=== PATIENT | female | born 1965 | race Caucasian/White ===

== ENCOUNTER 2018-07-23 06:31 | Day surgery (SDC) | payer OTHER ==
[2018-07-23] MEDS ORDERED: MIDAZOLAM 1 MG/ML 2 ML INJ ×3 (08:49→11:18)
[2018-07-23] MEDS ORDERED: FENTAnyl 50 MCG/ML VIAL (08:49)
== END 2018-07-23 10:26 | disposition home or self-care (01) ==
LOC: GIL 06:31
DX: Z12.11 Encounter for screening for malignant neoplasm of colon (principal); K64.8 Other hemorrhoids; K20.8 Other esophagitis; K29.30 Chronic superficial gastritis without bleeding
CPT/HCPCS: 43239; 88305; 88312

== ENCOUNTER 2018-12-28 09:40 | Inpatient (IN) | payer OTHER ==
[2018-12-28] MEDS ORDERED: LACTATED RINGER'S 1,000 ML IV* (10:00)
[2018-12-28] MEDS: CEFAZOLIN 2 GM/50 ML (PMX) 50 ML IVPB (10:00)
[2018-12-28] MEDS ORDERED: FENTAnyl 50 MCG/ML VIAL IV ×2 (14:00)
[2018-12-28] MEDS ORDERED: ALBUTEROL 0.083% (NEB) 2.5 MG/3 ML AMP HHN (14:00)
[2018-12-28] MEDS ORDERED: HYDROmorphONE 1 MG/5 ML IV SYRINGE IV (14:00)
[2018-12-28] MEDS ORDERED: METOCLOPRAMIDE 10 MG INJ IV (14:00)
[2018-12-28] MEDS ORDERED: OXYCODONE/ACETAMINOPHEN (5/325) TAB PO (14:00)
[2018-12-28] MEDS ORDERED: DIPHENHYDRAMINE 50 MG INJ IV (14:00)
[2018-12-28] MEDS: GELATIN SIZE 100 SPONGE (14:04)
[2018-12-28] MEDS: SURGIFOAM POWDER 1 GM KIT (14:04)
[2018-12-28] MEDS: THROMBIN (BOVINE) 5,000 UNIT VIAL TP (14:05)
[2018-12-28] MEDS: BUPIVACAINE 0.5%/EPI (SDV) 30 ML INJ (14:05)
[2018-12-28] MEDS ORDERED: POLYMYXIN/BACITRACIN 1L IRRIG (14:05)
[2018-12-28] MEDS ORDERED: FENTAnyl 50 MCG/ML VIAL (14:22)
[2018-12-28] MEDS ORDERED: HEPARIN 1000 UNITS/ML 10 ML INJ (14:28)
[2018-12-28] MEDS ORDERED: CA CHLORIDE 10% 10 ML SYRINGE (14:28)
[2018-12-28] MEDS ORDERED: PROVENTIL HFA 6.7GM INHALER (14:31)
[2018-12-28] MEDS: CEFAZOLIN 1 GM INJ (14:54)
[2018-12-28] MEDS ORDERED: PROPOFOL 20 ML (17:00)
[2018-12-28] MEDS ORDERED: SUGAMMADEX SODIUM 200 MG/2 ML VIAL IV (17:00)
[2018-12-28] MEDS ORDERED: ROCURONIUM 50 MG INJ (17:00)
[2018-12-28] MEDS ORDERED: LIDOCAINE 100 MG SYRINGE (17:00)
[2018-12-28] MEDS ORDERED: SUCCINYLCHOLINE CHLORIDE 100 MG/5 ML SYG IV (17:00)
[2018-12-28] MEDS ORDERED: CEFAZOLIN 1 GM INJ (17:00)
[2018-12-28] MEDS ORDERED: HYDROmorphONE 0.2 MG/ML PCA (17:23)
[2018-12-28] MEDS: HYDROmorphONE 1 MG/5 ML IV SYRINGE IV ×2 (17:27→17:49)
[2018-12-28] MEDS ORDERED: PROCHLORPERAZINE 10 MG TAB PO (17:30)
[2018-12-28] MEDS ORDERED: NACL 0.9% 3 ML SYG IV (17:30)
[2018-12-28] MEDS ORDERED: AL HYDROX/MG HYDROX/SIMETH 30 ML CUP PO (17:30)
[2018-12-28] MEDS ORDERED: ACETAMINOPHEN 325 MG TAB PO (17:30)
[2018-12-28] MEDS ORDERED: NALOXONE (0.4 MG/ML) INJ IV (17:30)
[2018-12-28] MEDS: ONDANSETRON 4 MG INJ IV (17:32)
[2018-12-28] MEDS: MEPERIDINE 25 MG INJ IV (17:32)
[2018-12-28] MEDS: HYDROmorphONE 0.2 MG/ML PCA IV (17:48)
[2018-12-28] MEDS: CEFAZOLIN 1 GM/50 ML (PMX) 50 ML IVPB (17:54)
[2018-12-28] MEDS: LACTATED RINGER'S 1,000 ML IV (19:05)
[2018-12-28] MEDS: ATORVASTATIN 10 MG TAB PO (21:00)
[2018-12-29] MEDS: ONDANSETRON 4 MG INJ IV (00:32)
[2018-12-29] MEDS: CEFAZOLIN 1 GM/50 ML (PMX) 50 ML IVPB ×3 (00:32→11:52)
[2018-12-29 05:17] LABS: HEMATOCRIT 37.1 % (37.0-47.0); HEMOGLOBIN 12.1 g/dl (12.0-16.0)
[2018-12-29 05:33] LABS: ANION GAP 9 (5-13); BLOOD UREA NITROGEN 9 mg/dl (7-20); CALCIUM 8.9 mg/dl (8.4-10.2); CARBON DIOXIDE 27 mmol/L (21-31); CHLORIDE 104 mmol/L (97-110); CREATININE 0.57 mg/dl (0.44-1.00); Estimated GFR > 60 mL/min (>60); GLUCOSE 130 mg/dl (70-220); POTASSIUM 4.1 mmol/L (3.5-5.1); SODIUM 140 mmol/L (135-144)
[2018-12-29] MEDS: PANTOPRAZOLE (EC) 40 MG TAB PO (05:38)
[2018-12-29] MEDS: DOCUSATE SODIUM 100 MG CAP PO ×2 (08:24→20:59)
[2018-12-29] MEDS: LACTATED RINGER'S 1,000 ML IV (11:30)
[2018-12-29] MEDS: HYDROCODONE/APAP (5/325) TAB PO (14:05)
[2018-12-29] MEDS ORDERED: DEXTROSE 5%-0.45% NACL 1,000 ML IV (19:00)
[2018-12-29] MEDS: DEXTROSE 5%-0.9% NACL 1,000 ML IV (21:01)
[2018-12-29] MEDS: ATORVASTATIN 10 MG TAB PO (21:01)
[2018-12-30] MEDS: HYDROCODONE/APAP (5/325) TAB PO ×3 (00:11→13:59)
[2018-12-30 05:11] LABS: ADD MAN DIFF? NO
[2018-12-30 05:21] LABS: BASOPHILS % 0.4 % (0.0-2.0); HEMATOCRIT 38.5 % (37.0-47.0); HEMOGLOBIN 12.6 g/dl (12.0-16.0); LYMPHOCYTES % 19.5 % (15.0-51.0); MEAN CORPUSCULAR HEMOGLOBIN 32.1 pg (29.0-33.0); MEAN CORPUSCULAR HGB CONC 32.7 g/dl (32.0-37.0); MEAN PLATELET VOLUME 10.4 fl (7.4-10.4); NEUTROPHIL # 7.1 10^3/ul (1.6-7.5); NEUTROPHILS % 69.7 % (39.0-77.0); PLATELET COUNT 266 10^3/UL (140-415); RED BLOOD COUNT 3.93 10^6/ul (4.20-5.40); RED CELL DISTRIBUTION WIDTH 12.7 % (11.5-14.5)
[2018-12-30 05:21] LABS: WHITE BLOOD COUNT 10.2 10^3/ul (4.8-10.8)
[2018-12-30] MEDS: PANTOPRAZOLE (EC) 40 MG TAB PO (05:32)
[2018-12-30 05:44] LABS: ANION GAP 5 (5-13); BLOOD UREA NITROGEN 7 mg/dl (7-20); CALCIUM 8.9 mg/dl (8.4-10.2); CARBON DIOXIDE 30 mmol/L (21-31); CHLORIDE 105 mmol/L (97-110); Estimated GFR > 60 mL/min (>60); GLUCOSE 105 mg/dl (70-220); MAGNESIUM 2.2 mg/dl (1.7-2.5); POTASSIUM 3.9 mmol/L (3.5-5.1); SODIUM 140 mmol/L (135-144)
[2018-12-30] MEDS: DOCUSATE SODIUM 100 MG CAP PO (08:42)
[2018-12-30] MEDS: DEXTROSE 5%-0.9% NACL 1,000 ML IV (09:34)
[2018-12-30 12:09] LABS: ADD UMIC YES; UR ASCORBIC ACID NEGATIVE (NEGATIVE); UR BACTERIA FEW /HPF (NONE SEEN); UR BILIRUBIN (Dip) NEGATIVE (NEGATIVE); UR BLOOD (Dip) 2+ mg/dL (NEGATIVE); UR CLARITY SLIGHTLY CLOUDY (CLEAR); UR COLOR YELLOW (YELLOW); UR GLUCOSE (Dip) NEGATIVE (NEGATIVE); UR KETONES (Dip) NEGATIVE (NEGATIVE); UR LEUKOCYTE ESTERASE (Dip) NEGATIVE Leu/ul (NEGATIVE); UR MUCUS FEW /HPF (NONE SEEN); UR NITRITE (Dip) NEGATIVE (NEGATIVE); UR RBC 8 /HPF (0-5); UR SPECIFIC GRAVITY (Dip) 1.021 (1.003-1.030); UR SQUAMOUS EPITHELIAL CELL MODERATE /HPF (FEW); UR TOTAL PROTEIN (Dip) NEGATIVE (NEGATIVE); UR UROBILINOGEN (Dip) NEGATIVE (NEGATIVE); UR WBC 3 /HPF (0-5)
== END 2018-12-30 15:35 | disposition home or self-care (01) | DRG 519 ==
LOC: REC 09:40 → MS1 12-29 20:18
PROC: 01NB0ZZ Release Lumbar Nerve, Open Approach (ICD-10-PCS; principal; 2018-12-28 12:00)
PROC: 00QT0ZZ Repair Spinal Meninges, Open Approach (ICD-10-PCS; 2018-12-28 12:00)
DX: M51.16 Intervertebral disc disorders with radiculopathy, lumbar region (principal); G97.41 Accidental puncture or laceration of dura during a procedure; M48.062 Spinal stenosis, lumbar region with neurogenic claudication; E78.5 Hyperlipidemia, unspecified; I25.10 Atherosclerotic heart disease of native coronary artery without angina pectoris; K21.9 Gastro-esophageal reflux disease without esophagitis; E66.9 Obesity, unspecified
CPT/HCPCS: 72110; 80048; 81001; 83735; 84100; 85014; 85018; 85025; 87086; 97116; 97162; 97530